=== PATIENT | male | born 1955 | race Caucasian/White ===

== ENCOUNTER 2022-11-29 15:53 | Observation (INO) | payer MEDICARE, BC ==
[2022-11-29 16:06] LABS: MEAN CORPUSCULAR HGB CONC 29.1 g/dL (32.0-36.0); MEAN CORPUSCULAR VOLUME 82.5 fL (83.0-97.0); PLATELET COUNT,PLT 368 10^3/uL (150-400); RED BLOOD CELL COUNT 2.29 x10^6/uL (4.50-6.00)
[2022-11-29 16:20] LABS: WHITE BLOOD CELL COUNT,WBC 20.9 10^3/uL (4.0-11.0)
[2022-11-29 16:21] LABS: ALANINE AMINOTRANSFERASE,ALT 23 U/L (12-78); ALBUMIN 1.6 g/dL (3.4-5.0); ALKALINE PHOSPHATASE 409 U/L (46-116); ASPARTATE AMNIOTRANSFERASE,AST 32 U/L (15-37); BILIRUBIN TOTAL 0.6 mg/dL (0.0-1.0); BLOOD UREA NITROGEN,BUN 16 mg/dL (7-18); CALCIUM 11.7 mg/dL (8.4-10.1); CARBON DIOXIDE,CO2 27 mmol/L (21-32); CHLORIDE,CL 99 mEq/L (98-106); CREATININE 1.1 mg/dL (0.7-1.3); GLUCOSE RANDOM 127 mg/dL (75-99); HEMATOCRIT 18.9 % (42.0-52.0); HEMOGLOBIN 5.5 g/dL (14.0-18.0); POTASSIUM,K 3.3 mEq/L (3.5-5.0); PROTEIN TOTAL,TP 5.7 g/dL (6.4-8.2); SODIUM,NA 135 mEq/L (136-145)
[2022-11-29 16:22] LABS: LYMPHOCYTES ABSOLUTE MAN 10.03 10^3/uL (1.00-4.80); LYMPHOCYTES PERCENT MAN 48 % (21-55); MONOCYTES ABSOLUTE MAN 1.25 10^3/uL (0.00-0.80); MONOCYTES PERCENT MAN 6 % (2-12); NEUTROPHILS ABSOLUTE MAN 9.61 10^3/uL (1.80-7.00); SEG NEUTROPHILS PERCENT MAN 46 % (35-85)
[2022-11-29 16:25] LABS: C-REACTIVE PROTEIN 29.2 mg/dL (0.2-0.8); ESTIMATED GFR 74 mL/min (>=60)
[2022-11-29 16:29] LABS: MAGNESIUM 1.8 mg/dL (1.8-2.4)
[2022-11-29] MEDS ORDERED: Furosemide 40 MG/4 ML VIAL IV ONE (16:58)
[2022-11-29] MEDS ORDERED: Ondansetron 4 MG Tab.DIS PO PRN (17:05)
[2022-11-29] MEDS ORDERED: Sodium Chloride 0.9% 10 ML Syringe FLUSH PRN (17:05)
[2022-11-29] MEDS ORDERED: Acetaminophen 325 MG Tab PO PRN (17:05)
[2022-11-29] MEDS ORDERED: Ondansetron 4 MG/2 ML SDV IV PRN (17:05)
[2022-11-29] MEDS ORDERED: Potassium Chloride 10 MEQ Tab.ER PO SCH (17:30)
[2022-11-29] MEDS: Nicotine 21 MG/24 Hr Patch TRDERM SCH (17:45)
[2022-11-29] MEDS ORDERED: Acetaminophen/HYDROcodone 325-5 MG Tab PO PRN (18:07)
[2022-11-29] MEDS ORDERED: diphenhydrAMINE 50 MG/ML SDV IVPUSH ONE (18:12)
[2022-11-29] MEDS ORDERED: Sodium Chloride 0.9% 250 ML IV SCH (18:15)
[2022-11-29] MEDS: Bacitracin Oint 28.35 GM Tube TOP SCH (19:29)
[2022-11-29] MEDS: Sodium Chloride 0.9% 250 ML IV STA (20:43)
[2022-11-29 21:18] LABS: BILIRUBIN TOTAL 0.7 mg/dL (0.0-1.0); EST CRCL DRUG DOSING (CG) 78.68 mL/min; HEMOGLOBIN 6.5 g/dL (14.0-18.0)
[2022-11-29 21:37] LABS: WHITE BLOOD CELL COUNT,WBC 19.2 10^3/uL (4.0-11.0)
[2022-11-29 21:38] LABS: BASOPHILS ABSOLUTE AUTO 0.02 10^3/uL (0.00-0.50); BASOPHILS PERCENT AUTO 0.1 % (0-1); EOSINOPHILS ABSOLUTE AUTO 0.02 10^3/uL (0.00-1.50); EOSINOPHILS PERCENT AUTO 0.1 % (0-6); HEMATOCRIT 21.6 % (42.0-52.0); IMMATURE GRAN ABSOLUTE AUTO 0.02 10^3/uL (0.00-0.49); IMMATURE GRAN PERCENT AUTO 0.1 % (0.0-4.9); LYMPHOCYTES ABSOLUTE AUTO 9.77 10^3/uL (0.60-5.00); LYMPHOCYTES PERCENT AUTO 50.9 % (24-44); MEAN CORPUSCULAR HEMOGLOBIN 24.8 pg (27.0-32.0); MEAN CORPUSCULAR HGB CONC 30.1 g/dL (32.0-36.0); MEAN CORPUSCULAR VOLUME 82.4 fL (83.0-97.0); MONOCYTES ABSOLUTE AUTO 1.21 10^3/uL (0.00-1.50); MONOCYTES PERCENT AUTO 6.3 % (0-10); NEUTROPHILS ABSOLUTE AUTO 8.17 x10^3/uL (1.80-8.00); NEUTROPHILS PERCENT AUTO 42.5 % (41-71); PLATELET COUNT,PLT 358 10^3/uL (150-400); RED BLOOD CELL COUNT 2.62 x10^6/uL (4.50-6.00)
[2022-11-29 22:24] LABS: APPEARANCE,URINE CLEAR (CLEAR); BILIRUBIN,URINE NEGATIVE (NEGATIVE); COLOR,URINE ORANGE (YELLOW); GLUCOSE,URINE NEGATIVE (NEGATIVE); KETONES,URINE NEGATIVE (NEGATIVE); LEUKOCYTE ESTERASE,URINE NEGATIVE (NEGATIVE); NITRITE,URINE NEGATIVE (NEGATIVE); OCCULT BLOOD,URINE TRACE-INTACT (NEGATIVE); PROTEIN,URINE NEGATIVE (NEGATIVE); UROBILINOGEN,URINE 0.2 EU/dL (0.2-1.0)
[2022-11-29 22:42] LABS: BACTERIA,URINE FEW /HPF (NOT SEEN); EPITHELIAL CELLS,URINE FEW /HPF (NOT SEEN); MUCUS,URINE FEW /HPF (NOT SEEN); RBC,URINE 0-5 /HPF (0-5)
[2022-11-30] MEDS: Sodium Chloride 0.9% 250 ML IV STA (04:27)
[2022-11-30] MEDS ORDERED: Furosemide 20 MG/2 ML VIAL IVPUSH ONE (06:16)
[2022-11-30 07:22] LABS: BASOPHILS ABSOLUTE AUTO 0.03 10^3/uL (0.00-0.50); BASOPHILS PERCENT AUTO 0.2 % (0-1); EOSINOPHILS ABSOLUTE AUTO 0.11 10^3/uL (0.00-1.50); EOSINOPHILS PERCENT AUTO 0.6 % (0-6); HEMATOCRIT 20.7 % (42.0-52.0); IMMATURE GRAN ABSOLUTE AUTO 0.02 10^3/uL (0.00-0.49); IMMATURE GRAN PERCENT AUTO 0.1 % (0.0-4.9); LYMPHOCYTES ABSOLUTE AUTO 10.45 10^3/uL (0.60-5.00); LYMPHOCYTES PERCENT AUTO 54.9 % (24-44); MEAN CORPUSCULAR HEMOGLOBIN 24.8 pg (27.0-32.0); MEAN CORPUSCULAR VOLUME 82.8 fL (83.0-97.0); MONOCYTES ABSOLUTE AUTO 1.37 10^3/uL (0.00-1.50); MONOCYTES PERCENT AUTO 7.2 % (0-10); NEUTROPHILS ABSOLUTE AUTO 7.06 x10^3/uL (1.80-8.00); PLATELET COUNT,PLT 360 10^3/uL (150-400)
[2022-11-30 07:23] LABS: APPEARANCE,URINE CLEAR (CLEAR); BILIRUBIN,URINE NEGATIVE (NEGATIVE); COLOR,URINE YELLOW (YELLOW); GLUCOSE,URINE NEGATIVE (NEGATIVE); KETONES,URINE NEGATIVE (NEGATIVE); LEUKOCYTE ESTERASE,URINE NEGATIVE (NEGATIVE); NITRITE,URINE NEGATIVE (NEGATIVE); OCCULT BLOOD,URINE NEGATIVE (NEGATIVE); PROTEIN,URINE NEGATIVE (NEGATIVE); UROBILINOGEN,URINE 0.2 EU/dL (0.2-1.0)
[2022-11-30 07:27] LABS: HEMOGLOBIN 6.2 g/dL (14.0-18.0)
[2022-11-30 07:59] LABS: ALBUMIN 1.5 g/dL (3.4-5.0); BILIRUBIN TOTAL 0.7 mg/dL (0.0-1.0); CALCIUM 11.8 mg/dL (8.4-10.1); CREATININE 0.9 mg/dL (0.7-1.3); EST CRCL DRUG DOSING (CG) 87.42 mL/min; MAGNESIUM 1.7 mg/dL (1.8-2.4); POTASSIUM,K 3.8 mEq/L (3.5-5.0); PROTEIN TOTAL,TP 5.7 g/dL (6.4-8.2)
[2022-11-30] MEDS ORDERED: Cholecalciferol (Vitamin D3) 5,000 UNIT Tab PO SCH (08:00)
[2022-11-30] MEDS: Bacitracin Oint 28.35 GM Tube TOP SCH ×3 (08:00→19:26)
[2022-11-30] MEDS ORDERED: Multivitamin Tab PO SCH (08:00)
[2022-11-30] MEDS ORDERED: Calcium Carbonate/Vitamin D3 1250 MG-5 MCG Tab PO SCH (08:00)
[2022-11-30] MEDS ORDERED: Furosemide 40 MG Tab PO SCH (08:00)
[2022-11-30] MEDS ORDERED: Potassium Chloride 10 MEQ Tab.ER PO ONE (08:00)
[2022-11-30 08:33] LABS: APPEARANCE,URINE CLEAR (CLEAR); BILIRUBIN,URINE NEGATIVE (NEGATIVE); COLOR,URINE YELLOW (YELLOW); GLUCOSE,URINE NEGATIVE (NEGATIVE); KETONES,URINE NEGATIVE (NEGATIVE); LEUKOCYTE ESTERASE,URINE NEGATIVE (NEGATIVE); NITRITE,URINE NEGATIVE (NEGATIVE); OCCULT BLOOD,URINE NEGATIVE (NEGATIVE); PROTEIN,URINE NEGATIVE (NEGATIVE); UROBILINOGEN,URINE 0.2 EU/dL (0.2-1.0)
[2022-11-30] MEDS ORDERED: Potassium Chloride 10 MEQ Tab.ER ONE ×2 (10:33→10:35)
[2022-11-30 12:00] LABS: APPEARANCE,URINE CLEAR (CLEAR); BILIRUBIN,URINE NEGATIVE (NEGATIVE); COLOR,URINE DARK YELLOW (YELLOW); GLUCOSE,URINE NEGATIVE (NEGATIVE); KETONES,URINE NEGATIVE (NEGATIVE); LEUKOCYTE ESTERASE,URINE NEGATIVE (NEGATIVE); NITRITE,URINE NEGATIVE (NEGATIVE); OCCULT BLOOD,URINE NEGATIVE (NEGATIVE); PROTEIN,URINE NEGATIVE (NEGATIVE); UROBILINOGEN,URINE 0.2 EU/dL (0.2-1.0)
[2022-11-30] MEDS ORDERED: Hydrocortisone Sodium Succinate 100 MG/2 ML SDV IVPUSH ONE (12:00)
[2022-11-30] MEDS ORDERED: diphenhydrAMINE 50 MG/ML SDV IV ONE (12:00)
[2022-11-30] MEDS ORDERED: Acetaminophen 325 MG Tab PO ONE (12:00)
[2022-11-30] MEDS: Sodium Chloride 0.9% 250 ML IV SCH (14:15)
[2022-11-30] MEDS: Nicotine 21 MG/24 Hr Patch TRDERM SCH (18:06)
[2022-11-30 20:22] LABS: HEMATOCRIT 22.2 % (42.0-52.0)
[2022-11-30 20:25] LABS: HEMOGLOBIN 6.8 g/dL (14.0-18.0)
[2022-12-01 07:25] LABS: BASOPHILS ABSOLUTE AUTO 0.02 10^3/uL (0.00-0.50); BASOPHILS PERCENT AUTO 0.1 % (0-1); HEMATOCRIT 21.5 % (42.0-52.0); IMMATURE GRAN ABSOLUTE AUTO 0.02 10^3/uL (0.00-0.49); IMMATURE GRAN PERCENT AUTO 0.1 % (0.0-4.9); LYMPHOCYTES ABSOLUTE AUTO 8.36 10^3/uL (0.60-5.00); LYMPHOCYTES PERCENT AUTO 42.7 % (24-44); MEAN CORPUSCULAR HEMOGLOBIN 25.3 pg (27.0-32.0); MEAN CORPUSCULAR HGB CONC 30.7 g/dL (32.0-36.0); MEAN CORPUSCULAR VOLUME 82.4 fL (83.0-97.0); MONOCYTES ABSOLUTE AUTO 1.14 10^3/uL (0.00-1.50); MONOCYTES PERCENT AUTO 5.8 % (0-10); NEUTROPHILS ABSOLUTE AUTO 10.06 x10^3/uL (1.80-8.00); NEUTROPHILS PERCENT AUTO 51.3 % (41-71); PLATELET COUNT,PLT 320 10^3/uL (150-400); RED BLOOD CELL COUNT 2.61 x10^6/uL (4.50-6.00); WHITE BLOOD CELL COUNT,WBC 19.6 10^3/uL (4.0-11.0)
[2022-12-01] MEDS: Bacitracin Oint 28.35 GM Tube TOP SCH ×2 (07:30→14:49)
[2022-12-01 07:32] LABS: HEMOGLOBIN 6.6 g/dL (14.0-18.0)
[2022-12-01 07:55] LABS: ALBUMIN 1.4 g/dL (3.4-5.0); BILIRUBIN TOTAL 0.5 mg/dL (0.0-1.0); CALCIUM 11.1 mg/dL (8.4-10.1); CREATININE 0.9 mg/dL (0.7-1.3); EST CRCL DRUG DOSING (CG) 87.42 mL/min; POTASSIUM,K 3.6 mEq/L (3.5-5.0); PROTEIN TOTAL,TP 5.4 g/dL (6.4-8.2)
[2022-12-01] MEDS ORDERED: Potassium Chloride 10 MEQ Tab.ER PO SCH (08:00)
[2022-12-01] MEDS ORDERED: Furosemide 40 MG Tab PO SCH (08:00)
[2022-12-01] MEDS ORDERED: Acetaminophen 325 MG Tab PO ONE (09:11)
[2022-12-01] MEDS ORDERED: diphenhydrAMINE 50 MG/ML SDV IVPUSH ONE (09:11)
[2022-12-01] MEDS ORDERED: Hydrocortisone Sodium Succinate 100 MG/2 ML SDV IVPUSH ONE (09:12)
[2022-12-01] MEDS ORDERED: cefTRIAXone 1 GM Vial IVPUSH ONE (11:06)
[2022-12-01] MEDS: Sodium Chloride 0.9% 250 ML IV SCH (12:13)
[2022-12-01] MEDS ORDERED: Potassium Chloride 10 MEQ Tab.ER PO ONE (12:51)
== END 2022-12-01 14:50 ==
LOC: CC.FCMC 15:53 → UNDOADMOB 16:23 → INTOOBSV 16:23 → CC.MS 16:23 → UNDOADMOB 17:05 → CC.MS 17:05
PROVIDERS: ADMIT Nurse Practitioner Family; ATTEND Nurse Practitioner Family
DX: D64.9 Anemia, unspecified (principal); N39.0 Urinary tract infection, site not specified; R60.0 Localized edema; E87.6 Hypokalemia; F17.210 Nicotine dependence, cigarettes, uncomplicated; Z20.822 Contact with and (suspected) exposure to COVID-19; Z88.6 Allergy status to analgesic agent; M54.9 Dorsalgia, unspecified; Z79.899 Other long term (current) drug therapy; Z79.891 Long term (current) use of opiate analgesic
CPT/HCPCS: 36415; 36430; 73030-LT; 80053; 81001; 81003; 82247; 82270; 82565; 83735; 83880; 84520; 85014; 85018; 85025; 86140; 86850; 86880; 86900; 86901; 86920; 86922; 87086; 87088; 87186; 87804; 96374; 96375; 96376; 99223; 99233; 99239; A9270-GY; G0378; J0696; J1200; J1720; J1940; J7050; P9016; U0002